=== PATIENT | female | born 1985 | race Caucasian/White ===

== ENCOUNTER 2020-10-21 14:09 | Emergency (ER) | payer BC ==
[2020-10-21] MEDS ORDERED: Sulfameth/Trimethoprim DS 800-160mg TAB ONE (14:47)
[2020-10-21] MEDS ORDERED: Boostrix 0.5 ML (Tdap) VIAL ONE (14:47)
--- NOTE | 2020-10-21 14:58 | RAD ---
LEFT TOES THREE VIEWS: History: Injury, pain in the left great toe. FINDINGS: No fracture or dislocation is seen. No radiopaque foreign body is identified. IMPRESSION: As above. POS: OFF
[2020-10-21] MEDS ORDERED: Ibuprofen 200 MG TAB ONE (15:11)
== END 2020-10-21 15:41 | disposition home or self-care (01) ==
LOC: BURERS 14:09
DX: S91.112A Laceration without foreign body of left great toe without damage to nail, initial encounter (principal); W22.8XXA Striking against or struck by other objects, initial encounter; F17.290 Nicotine dependence, other tobacco product, uncomplicated
CPT/HCPCS: 12002; 90471; 90715